=== PATIENT | male | born 1950 | race Caucasian/White ===

== ENCOUNTER → 2018-02-18 | Outpatient (CLI) | payer MEDICARE ==
[~2018-02-18] MED LIST: ALLOPURINOL100 MG PO; ASPIRIN 32325 MG/TAB PO; CEPHALEXIN500 M1 PO; NORCO 325 MG-51 TAB PO; SYNTHROID0.125 MG/T PO; SYNTHROID0.2 MG/TAB PO
== END ==
LOC: COL.RAD 08:32
DX: M19.011 Primary osteoarthritis, right shoulder (principal)
CPT/HCPCS: J3301; Q9967